=== PATIENT | male | born 1995 | race American Indian/Alaskan Native ===

== ENCOUNTER 2017-03-13 14:45 | Emergency (ER) | payer SELFPAY ==
[2017-03-13 15:00] VITALS: BP 100/77
--- NOTE | 2017-03-13 15:54 | XRay Report ---
Right hand 2 views. Findings: There is posterior dislocation at the fifth PIP joint. There is associated soft tissue swelling. There are no other significant findings.
[2017-03-13] MEDS ORDERED: XYLOCAINE 1% 20 mL INFILTRATI ONE (16:33)
--- NOTE | 2017-03-13 16:52 | Emergency Department Report ---
ED Upper Extremity Inj HPI - General Chief Complaint: Extremity Injury, Upper Stated Complaint: R FINGER DISLOCATION Time Seen by Provider: 03/13/17 16:32 Source: patient Mode of arrival: Ambulatory Limitations: No Limitations - History of Present Illness Initial Comments: Pt is a 21 y/o aam with nmh who presents for right pinky finger pain swelling via hand versus football, " I dislocated it" pain 6/10 aching deformity rom restreicted by pain incident 3 hrs ago. there is no numbness no tingling " just pain " MD Complaint: Injury to:: right Onset/Timin -: hour(s) Other Extremity Injury: Fingers: Right (pinky ) Handedness: right Place: outdoors Severity scale (0 -10): 8 Improves With: none Worsens With: movement of extremity Context: direct blow Associated Symptoms: denies: weakness, numbness, neck pain, suspects foreign body, nausea/vomiting, heard/felt popping sensat - Related Data Previous Rx's Medication Instructions Recorded Last Taken Type Acetaminophen/Codeine [Tylenol #3] 1 tab PO Q6H PRN #8 tab 02/27/13 Unknown Rx Amoxicillin [Trimox CAP] 500 mg PO TID #15 capsule 02/27/13 Unknown Rx Cyclobenzaprine [Flexeril] 10 mg PO TID PRN #30 tablet 03/13/17 Unknown Rx Naproxen [Naprosyn TAB] 500 mg PO BID PRN #30 tablet 03/13/17 Unknown Rx Allergies Allergy/AdvReac Type Severity Reaction Status Date / Time No Known Allergies Allergy Unverified 02/27/13 13:34 ED Review of Systems ROS: Stated complaint: R FINGER DISLOCATION Other details as noted in HPI Constitutional: denies: chills, fever Eyes: denies: eye pain, eye discharge, vision change ENT: denies: ear pain, throat pain Respiratory: denies: cough, shortness of breath, wheezing Cardiovascular: denies: chest pain, palpitations Endocrine: no symptoms reported Gastrointestinal: denies: abdominal pain, nausea, diarrhea Genitourinary: denies: urgency, dysuria Musculoskeletal: joint swelling. denies: back pain, arthralgia Skin: denies: rash, lesions Neurological: denies: headache, weakness, paresthesias Psychiatric: denies: anxiety, depression Hematological/Lymphatic: denies: easy bleeding, easy bruising ED Past Medical Hx - Past Medical History Previous Medical History?: Yes Hx Asthma: Yes - Surgical History Past Surgical History?: No - Social History Smoking Status: Current Every Day Smoker Substance Use Type: None - Medications Home Medications: Home Medications Medication Instructions Recorded Confirmed Last Taken Type Acetaminophen/Codeine [Tylenol #3] 1 tab PO Q6H PRN #8 tab 02/27/13 Unknown Rx Amoxicillin [Trimox CAP] 500 mg PO TID #15 capsule 02/27/13 Unknown Rx Cyclobenzaprine [Flexeril] 10 mg PO TID PRN #30 tablet 03/13/17 Unknown Rx Naproxen [Naprosyn TAB] 500 mg PO BID PRN #30 tablet 03/13/17 Unknown Rx ED Physical Exam - General Limitations: No Limitations General appearance: alert, in no apparent distress - Head Head exam: Present: atraumatic, normocephalic - Eye Eye exam: Present: normal appearance - ENT ENT exam: Present: mucous membranes moist - Neck Neck exam: Present: normal inspection - Respiratory Respiratory exam: Present: normal lung sounds bilaterally. Absent: respiratory distress - Cardiovascular Cardiovascular Exam: Present: regular rate, normal rhythm. Absent: systolic murmur, diastolic murmur, rubs, gallop - GI/Abdominal GI/Abdominal exam: Present: soft, normal bowel sounds - Rectal Rectal exam: Present: deferred - Extremities Exam Extremities exam: Present: normal inspection, full ROM, tenderness (right pinky ), normal capillary refill, joint swelling. Absent: pedal edema, calf tenderness - Expanded Upper Extremity Exam Right Neuro motor exam: Present: wrist extension intact, thumb opposition intact, thumb IP flexion intact, thumb adduction intact, fingers 2-5 abduction intact Neurosensory exam: Present: 2-point discrimination, radial nerve intact, ulnar nerve intact, median nerve intact Vascular: Present: normal capillary refill, radial pulse, brachial pulse, ulnar pulse. Absent: vascular compromise, Pallo, pulse deficit radial art, pulse deficit ulnar art, pulse deficit brachial art - Back Exam Back exam: Present: normal inspection, full ROM. Absent: tenderness, CVA tenderness (R), CVA tenderness (L), muscle spasm, paraspinal tenderness, vertebral tenderness, rash noted - Neurological Exam Neurological exam: Present: alert, oriented X3, CN II-XII intact, normal gait, reflexes normal. Absent: motor sensory deficit - Psychiatric Psychiatric exam: Present: normal affect, normal mood - Skin Skin exam: Present: warm, dry, intact, normal color. Absent: rash ED Course Vital Signs 03/13/17 14:57 Temperature 98.9 F Pulse Rate 78 Respiratory 18 Rate Blood Pressure 100/77 O2 Sat by Pulse 96 Oximetry - Orthopedic Joint Reduction Joint #1 Consent Obtained: verbal consent Time Out Performed: Yes Side: right Joint Reduction Location: other (right pinky finger posterior dislocation of 5th pip joint) Analgesia: digital block Local Anesthetic Used: Lidocaine 1% Amount of Anesthetic Used (mls): 1 Technique Used: direct manipulation Post-Reduction Neuro Exam: intact Post-Reduction Vascular Exam: intact Post Reduction X-Ray Obtained: Yes Post Reduction X-Ray Results: reduced Splint Applied: Yes Patient Tolerated Procedure: well - Orthopedic Splinting/Casting Injury #1 Side: right Upper Extremity Injury Location: finger Upper Extremity Immobilizer: posterior splint ED Medical Decision Making - Radiology Data Radiology results: image reviewed finger reduced, no fracture - Medical Decision Making Pt is a 21 y/o aam with nmh who presents for right pinky finger pain swelling via hand versus football, " I dislocated it" pain 6/10 aching deformity rom restreicted by pain incident 3 hrs ago. 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 Hidalgo [phone], pt verbalized agreement and understanding of discharge plan. Critical care attestation.: If time is entered above; I have spent that time in minutes in the direct care of this critically ill patient, excluding procedure time. ED Disposition Clinical Impression: Dislocation of right little finger Qualifiers: Encounter type: initial encounter Qualified Code(s): S63.256A - Unspecified dislocation of right little finger, initial encounter Disposition: DC-01 TO HOME OR SELFCARE Is pt being admited?: No Does the pt Need Aspirin: No Condition: Good Instructions: Finger Dislocation (ED) Prescriptions: Cyclobenzaprine [Flexeril] 10 mg PO TID PRN #30 tablet PRN Reason: Muscle Spasm Naproxen [Naprosyn TAB] 500 mg PO BID PRN #30 tablet PRN Reason: Pain Referrals: PRIMARY CARE,MD [Primary Care Provider] - 3-5 Days Forms: Work/School Release Form(ED) Time of Disposition: 17:40
--- NOTE | 2017-03-14 07:19 | XRay Report ---
Right hand fifth finger: History: Post reduction of right fifth PIP dislocation. Findings: There is satisfactory alignment noted of the phalanges fifth finger right hand. No dislocation or fracture is seen. Impression: Essentially negative right fifth finger.
== END 2017-03-13 17:53 | disposition home or self-care (01) ==
LOC: ED 14:45
DX: S63.286A Dislocation of proximal interphalangeal joint of right little finger, initial encounter (principal); F17.210 Nicotine dependence, cigarettes, uncomplicated; X58.XXXA Exposure to other specified factors, initial encounter; Y93.61 Activity, american tackle football; Y92.89 Other specified places as the place of occurrence of the external cause; Y99.8 Other external cause status
CPT/HCPCS: 99283

== ENCOUNTER 2020-05-26 13:04 | Emergency (ER) | payer SELFPAY ==
[2020-05-26] MEDS ORDERED: LIDOCAINE-MPF (1%) 10 MG/1 ML VIAL 5 ML INFILTRATI ONE (13:24)
--- NOTE | 2020-05-26 13:26 | Emergency Department Report ---
ED Dysuria HPI - HPI Stated Complaint: BURNING WHEN URINE Time Seen by Provider: 05/26/20 13:23 Duration: 3 Days Severity: Mild Symptoms: Dysuria: Yes, Frequency: No, Suprapubic Pain: No, Flank Pain: No, Fever: No, Hematuria: No, Abdominal Pain: No, Previous UTI's: No Other History: Patient is a 24-year-old -[place] male that comes to the ER with tingling with urination after unprotected sex about a week ago. He denies discharge. He denies testicular pain. ED Review of Systems ROS: Stated complaint: BURNING WHEN URINE Other details as noted in HPI Comment: All other systems reviewed and negative ED Past Medical Hx - Past Medical History Previous Medical History?: Yes Hx Asthma: Yes - Surgical History Past Surgical History?: No - Family History Family history: no significant - Social History Smoking Status: Current Every Day Smoker Substance Use Type: Alcohol, Other (thc) - Medications Home Medications: Home Medications Medication Instructions Recorded Confirmed Last Taken Type Acetaminophen/Codeine [Tylenol #3] 1 tab PO Q6H PRN #8 tab 02/27/13 Unknown Rx Amoxicillin [Trimox CAP] 500 mg PO TID #15 capsule 02/27/13 Unknown Rx Cyclobenzaprine [Flexeril] 10 mg PO TID PRN #30 tablet 03/13/17 Unknown Rx Naproxen [Naprosyn TAB] 500 mg PO BID PRN #30 tablet 03/13/17 Unknown Rx Azithromycin 500 mg PO ONCE #2 tablet 05/26/20 Unknown Rx Dysuria Exam - Exam General: Vital signs noted. No distress. Alert and acting appropriately. Exam: Yes Moist Mucous Membranes, No CVA Tenderness, No Abdominal Tenderness, No Rigidity or Guarding ED Medical Decision Making - Medical Decision Making UA and GC pending. Patient being treated empirically with a gram of Rocephin and given a prescription for a gram of p.o. azithromycin. He understands he needs to go get that filled and take it today. Patient being discharged home with discharge plan of care including safe sex instructions and PCP follow-up. Vital signs are normal as documented manually by the RN. Vital Signs 05/26/20 14:15 Temperature 98.4 F Pulse Rate 82 Respiratory 18 Rate Blood Pressure 134/62 [Left] O2 Sat by Pulse 98 Oximetry - Differential Diagnosis std Critical care attestation.: If time is entered above; I have spent that time in minutes in the direct care of this critically ill patient, excluding procedure time. ED Disposition Clinical Impression: STI (sexually transmitted infection) Disposition: TO HOME OR SELFCARE Is pt being admited?: No Does the pt Need Aspirin: No Condition: Stable Instructions: Safe Sex Additional Instructions: safe sex follow up with pcp referral below Prescriptions: Azithromycin 500 mg PO ONCE #2 tablet Referrals: ALBA CELESTIN MD [Staff Physician] - 3-5 Days Time of Disposition: 13:24
[2020-05-26 14:15] VITALS: BP 134/62
[2020-05-26 14:33] LABS: Bilirubin,Urine NEG (Negative); Blood,Urine NEG (Negative); Color,Urine Yellow (Yellow); Mucus,Urine 1+ /HPF; Urobilinogen,Urine < 2.0 mg/dL (<2.0)
== END 2020-05-26 14:17 | disposition home or self-care (01) ==
LOC: ED 13:04
DX: A64 Unspecified sexually transmitted disease (principal); J45.909 Unspecified asthma, uncomplicated; F17.200 Nicotine dependence, unspecified, uncomplicated; Z79.2 Long term (current) use of antibiotics; Z79.899 Other long term (current) drug therapy
CPT/HCPCS: 81001; 87086; 96372; 99283; J0696